=== PATIENT | male | born 1960 | race Two or more races ===

== ENCOUNTER 2019-09-28 09:33 | Inpatient (IN) | payer MEDICAID ==
[~2019-09-28] VITALS: Ht 174 cm; Wt 94.8 kg
[2019-09-28] MEDS ORDERED: LACTATED RINGERS 1,000 ML IV SCH (10:00)
[2019-09-28 10:52] LABS: CLARITY URINE CLEAR (CLEAR); COLOR URINE YELLOW (YELLOW); KETONES URINE NEGATIVE (NEGATIVE); LEUKOCYTE ESTERASE URINE NEGATIVE (NEGATIVE); NITRITE URINE NEGATIVE (NEGATIVE); OCCULT BLOOD URINE NEGATIVE (NEGATIVE); PROTEIN URINE NEGATIVE (NEGATIVE); UROBILINOGEN URINE 0.2 E.U./dL (0.2-1.0)
[2019-09-28] MEDS ORDERED: CHOL400T15 MT (11:00)
[2019-09-28] MEDS ORDERED: IBUP-2030 PO (11:00)
[2019-09-28] MEDS ORDERED: OMEP40CA12 MT (11:00)
[2019-09-28] MEDS ORDERED: ACET650T37 MT (11:00)
[2019-09-28] MEDS ORDERED: METHYLENE BLUE 50 MG/10 ML AMP IV ONE (11:07)
[2019-09-28] MEDS ORDERED: BUPIVACAINE/EPINEPH/PF 0.25%/0.0005 10ML ONE ×2 (11:08→11:09)
[2019-09-28] MEDS ORDERED: GENTAMICIN SULF 40MG/ML 2ML VIAL ONE (11:08)
[2019-09-28] MEDS ORDERED: EPINEPHRINE 1:1000 1 MG/ML AMP ONE (11:08)
[2019-09-28] MEDS ORDERED: NORMAL SALINE 0.9% 10 ML SYR ONE (11:09)
[2019-09-28] MEDS ORDERED: VANCOMYCIN HCL 1 GM/VIAL ONE (11:09)
[2019-09-28] MEDS ORDERED: BACITRACIN 50,000 UNITS/VIAL ONE (11:10)
[2019-09-28] MEDS ORDERED: TRANEXAMIC ACID 1,000 MG in SODIUM CHLORIDE 0.9% 100 ML IV NR (12:00)
[2019-09-28] MEDS ORDERED: FENTANYL CITRATE/PF 50MCG/ML 2ML VIAL ONE (14:05)
[2019-09-28] MEDS ORDERED: PROPOFOL 10MG/ML 100ML 100 ML IV ONE ×2 (14:05→16:21)
[2019-09-28] MEDS ORDERED: MIDAZOLAM HCL 2 MG/2 ML VIAL ONE (14:06)
[2019-09-28] MEDS ORDERED: PROPOFOL 200MG/20ML VIAL IV ONE (15:29)
[2019-09-28] MEDS ORDERED: TRANEXAMIC ACID 1,000 MG/10 ML IV SCH (17:15)
[2019-09-28] MEDS ORDERED: MORPHINE SULFATE/PF 1MG/ML 10ML AMP ONE (17:18)
[2019-09-28] MEDS ORDERED: ONDANSETRON HCL 4MG/2ML INJ IV PRN (18:45)
[2019-09-28] MEDS ORDERED: HYDROCODONE/ACETAMINOPHEN 10/325MG TABLET PO PRN (18:45)
[2019-09-28] MEDS ORDERED: ACETAMINOPHEN 325MG TABLET PO PRN (18:45)
[2019-09-28] MEDS ORDERED: ZOLPIDEM TARTRATE 5MG TABLET PO PRN (18:45)
[2019-09-28] MEDS ORDERED: MAGNESIUM HYDROXIDE 400MG/5ML 30ML UDC PO PRN (18:45)
[2019-09-28] MEDS ORDERED: HYDROMORPHONE PCA 50 ML IV ONE (19:06)
[2019-09-28] MEDS ORDERED: NALOXONE INJ IV PRN (19:15)
[2019-09-28] MEDS ORDERED: DIPHENHYDRAMINE INJ IV PRN (19:15)
[2019-09-28] MEDS ORDERED: ONDANSETRON INJ IV PRN (19:15)
[2019-09-28] MEDS ORDERED: HYDROMORPHONE PCA 10MG/50ML IV PRN (19:15)
[2019-09-28 20:00] VITALS: BP 141/87
[2019-09-28 20:30] VITALS: BP 141/87
[2019-09-29] VITALS: BP 141/89
[2019-09-29] MEDS: CEFAZOLIN 2,000 MG in DEXT 5% WATER 100 ML IV SCH ×2 (02:47→08:53)
[2019-09-29 04:00] VITALS: BP 139/84
[2019-09-29 07:46] LABS: CHLORIDE 105 mEq/L (98-107)
[2019-09-29 07:47] LABS: BASOPHILS % 0.3 % (0.0-2.0); EOSINOPHILS % 0.1 % (0.0-5.0); HEMATOCRIT. 43.5 % (42.0-52.0); HEMOGLOBIN. 15.2 g/dL (14.0-18.0); LYMPHOCYTES % 12.4 % (20.0-50.0); MEAN CORPUSCULAR HEMOGLOBIN 30.7 pg (28.0-32.0); MEAN CORPUSCULAR VOLUME 87.7 fL (80.0-94.0); MEAN PLATELET VOLUME 10.1 fl (7.4-10.4); MONOCYTES % 9.6 % (2.0-8.0); NEUTROPHILS % 77.6 % (40.0-76.0); PLATELET 142 x1000/uL (130-400); RED BLOOD CELL COUNT 4.96 mill/uL (4.7-6.1); RED CELL DISTRIBUTION WIDTH 13.8 % (11.6-14.6)
[2019-09-29 08:00] VITALS: BP 138/86
[2019-09-29] MEDS: DOCUSATE SODIUM 100MG CAPSULE PO SCH ×2 (08:53→17:06)
[2019-09-29] MEDS: ENOXAPARIN 30MG/0.3ML SYR SUBCUT SCH ×2 (11:00→20:41)
[2019-09-29 12:00] VITALS: BP 131/79
[2019-09-29 16:00] VITALS: BP 127/76
[2019-09-29] MEDS ORDERED: DEXTROSE 50% WATER 50ML SYRINGE IV PRN (18:45)
[2019-09-29 20:00] VITALS: BP 135/73
[2019-09-29] MEDS: INSULIN LISPRO 100 UNITS/ML SUBCUT SCH (21:09)
[2019-09-29] MEDS: BLOOD SUGAR DIAGNOSTIC STRIP TEST SCH (21:10)
[2019-09-29] MEDS: HYDROCODONE/ACETAMINOPHEN 10/325MG TABLET PO PRN (21:16)
[2019-09-30] VITALS: BP 141/79
[2019-09-30 04:00] VITALS: BP 124/71
[2019-09-30] MEDS: BLOOD SUGAR DIAGNOSTIC STRIP TEST SCH ×4 (06:38→20:48)
[2019-09-30 06:39] LABS: CHLORIDE 100 mEq/L (98-107)
[2019-09-30 07:27] LABS: BASOPHILS % 0.3 % (0.0-2.0); EOSINOPHILS % 0.2 % (0.0-5.0); HEMATOCRIT. 38.2 % (42.0-52.0); HEMOGLOBIN. 13.3 g/dL (14.0-18.0); LYMPHOCYTES % 15.8 % (20.0-50.0); MEAN CORPUSCULAR HEMOGLOBIN 30.5 pg (28.0-32.0); MEAN CORPUSCULAR VOLUME 87.6 fL (80.0-94.0); MEAN PLATELET VOLUME 10.6 fl (7.4-10.4); NEUTROPHILS % 73.7 % (40.0-76.0); PLATELET 123 x1000/uL (130-400); RED BLOOD CELL COUNT 4.36 mill/uL (4.7-6.1); RED CELL DISTRIBUTION WIDTH 13.3 % (11.6-14.6)
[2019-09-30] MEDS: INSULIN LISPRO 100 UNITS/ML SUBCUT SCH ×4 (07:29→20:59)
[2019-09-30 08:00] VITALS: BP 129/79
[2019-09-30] MEDS: DOCUSATE SODIUM 100MG CAPSULE PO SCH ×2 (10:05→18:47)
[2019-09-30] MEDS: ENOXAPARIN 30MG/0.3ML SYR SUBCUT SCH ×2 (10:06→21:04)
[2019-09-30] MEDS ORDERED: POTASSIUM CHLORIDE 20MEQ TABLET SR PO NR (12:45)
[2019-09-30] MEDS ORDERED: METF-414 MT (14:30)
[2019-09-30 20:00] VITALS: BP 122/90
[2019-10-01] VITALS: BP 130/58
[2019-10-01 04:00] VITALS: BP 114/68
[2019-10-01] MEDS: BLOOD SUGAR DIAGNOSTIC STRIP TEST SCH ×4 (07:40→20:16)
[2019-10-01] MEDS: INSULIN LISPRO 100 UNITS/ML SUBCUT SCH ×4 (09:49→21:37)
[2019-10-01] MEDS: DOCUSATE SODIUM 100MG CAPSULE PO SCH ×2 (09:55→18:28)
[2019-10-01] MEDS: ENOXAPARIN 30MG/0.3ML SYR SUBCUT SCH ×2 (09:56→20:16)
[2019-10-01 12:00] VITALS: BP 115/79
[2019-10-01 16:00] VITALS: BP 114/69
[2019-10-01 20:27] VITALS: BP 113/70
[2019-10-02] VITALS: BP 136/73
[2019-10-02 04:00] VITALS: BP 128/72
[2019-10-02] MEDS: BLOOD SUGAR DIAGNOSTIC STRIP TEST SCH ×2 (07:30→11:32)
[2019-10-02 08:00] VITALS: BP 115/70
[2019-10-02] MEDS: ENOXAPARIN 30MG/0.3ML SYR SUBCUT SCH (08:35)
[2019-10-02] MEDS: DOCUSATE SODIUM 100MG CAPSULE PO SCH (08:35)
[2019-10-02] MEDS: INSULIN LISPRO 100 UNITS/ML SUBCUT SCH ×2 (08:58→11:36)
[2019-10-02] MEDS: HYDROCODONE/ACETAMINOPHEN 10/325MG TABLET PO PRN (11:30)
[2019-10-02 12:00] VITALS: BP 135/91
[2019-10-02 15:34] VITALS: BP 135/91
[2019-10-02 16:00] VITALS: BP 120/71
== END 2019-10-02 16:11 | disposition home or self-care (01) | DRG 302 ==
LOC: OR 09:33 → 6EST 20:52
PROVIDERS: ADMIT Internal Medicine; ATTEND Orthopaedic Surgery
PROC: 0SRD0J9 Replacement of Left Knee Joint with Synthetic Substitute, Cemented, Open Approach (ICD-10-PCS; principal; 2019-09-28)
DX: M17.12 Unilateral primary osteoarthritis, left knee (principal); I12.0 Hypertensive chronic kidney disease with stage 5 chronic kidney disease or end stage renal disease; E11.65 Type 2 diabetes mellitus with hyperglycemia; N18.6 End stage renal disease; G89.29 Other chronic pain; M65.9 Synovitis and tenosynovitis, unspecified; Z96.611 Presence of right artificial shoulder joint; I83.90 Asymptomatic varicose veins of unspecified lower extremity; E66.3 Overweight; Z68.31 Body mass index [BMI] 31.0-31.9, adult
CPT/HCPCS: 36415; 73560; 80048; 81003; 82962; 83036; 85025; 86850; 86900; 88305; 88311; 97110; 97116; 97162; 97166; 97530; 97535; C1713; C1776; J0171; J0690; J1170; J1580; J1650; J1815; J2250; J2274; J2704; J3010; J3370; J3490; J7050; J7060; L1830; Q9968